=== PATIENT | male | born 1990 | race African-American/Black ===

== ENCOUNTER 2016-11-29 09:03 | Emergency (ER) | payer OTHER ==
[~2016-11-29] VITALS: Ht 167.6 cm; Wt 65.8 kg
[2016-11-29 09:18] VITALS: BP 128/77
[2016-11-29] MEDS ORDERED: Oxycodone/Acetaminophen 5-325 ORAL ONE (09:30)
--- NOTE | 2016-11-29 09:45 | Emergency Room Report ---
History of Present Illness General Chief Complaint: Upper Extremity Injury Source: Patient Present Illness HPI 26YOM [employer] patient with left hand pain, heard pop while crimping on small hold while indoor rock climbing Pain is to index metacarpal Occurred yesterday afternoon Been icing it Step mom physician placed splint with hand wrap Pain with flexing/extending index finger, making a fist. Allergies: Coded Allergies: No Known Allergies (Unverified , 11/29/16) Patient History Past Medical History: none Past Surgical History: none Pertinent Family History: none Social History: Denies: alcohol use, drug use, smoking Immunizations: UTD Reviewed Nursing Documentation: PMH: Agreed, PSxH: Agreed Nursing Documentation-PMH Past Medical History: No History, Except For Review of Systems All Other Systems: negative except mentioned in HPI Physical Exam Vital Signs Date Time Temp Pulse Resp B/P Pulse Ox O2 Delivery O2 Flow Rate FiO2 11/29/16 09:08 98.2 95 18 131/79 98 Room Air Sp02 EP Interpretation: reviewed, normal General Appearance: normal inspection, well appearing, no apparent distress, alert Head: normocephalic, atraumatic ENT: normal ENT inspection, hearing grossly normal, normal voice Neck: normal inspection, full range of motion, supple, no bony tend Respiratory: normal inspection, lungs clear, normal breath sounds, no respiratory distress, no retraction, no wheezing Cardiovascular #1: regular rate, rhythm, no edema Gastrointestinal: normal inspection, normal bowel sounds, non tender, soft, no guarding, no hernia Genitourinary: no CVA tenderness Musculoskeletal: normal inspection, back normal, normal range of motion, Axel' s Sign negative, other - Left hand: Significant ttp to left index metacarpal. Pain with extension/flexion index finger. 2++ distal radius. Full ROM at wrist. Neurologic: normal inspection, alert, oriented x3, responsive, [employer] III-XII nml as tested, motor strength/tone normal, speech normal Psychiatric: normal inspection, judgement/insight normal, mood/affect normal Skin: normal inspection, normal color, no rash Procedures Joint Reduction Joint Reduction : Consent: Emergent Joint Reduction Site: other - left hand Procedural Sedation: No Reduction Attempts: One Pre-Procedure NV Exam: Yes Post-Procedure NV Exam: Yes Post Joint Reduction Film: joint not reduced Patient Tolerated: Well Complications: None Progress Hematoma block to midshaft index metacarpal with 5cc lidocaine 1% Pulled traction to separate shaft fracture points and try to re-align Medical Decision Making Diagnostic Impression: Primary Impression: Left hand pain Additional Impression: Fracture, metacarpal shaft ER Course Left hand pain - VSS. Afebrile. - Analgesia provided - Xray: index metacarpal fx - Attempted reduction with hematoma block but only minimally successful - Splint placed - Will need surgery - Advised ICE, REST. Rx [place] Patient called PMD - going to office from here for Ortho/hand referral Understands urgency of 2-3 day followup Last Vital Signs Date Time Temp Pulse Resp B/P Pulse Ox O2 Delivery O2 Flow Rate FiO2 11/29/16 09:18 98.1 92 17 128/77 99 Room Air Status: unchanged Disposition: HOME, SELF-CARE Scripts Oxycodone/Acetaminophen 5-325* (PERCOCET 5-325 MG TABLET*) 1 Each Tablet 1 TAB ORAL Q8H Y for For Pain for 7 Days, #20 TAB Prov: NESS SHAY M.D. 11/29/16 Referrals: [facility],REFERRING (PCP) NESS SHAY M.D. Nov 29, 2016 09:45
[2016-11-29] MEDS ORDERED: Lidocaine 1% Plain 30 ml INJ ONE (11:15)
[2016-11-29] MEDS ORDERED: PERCOCET 5-3251 EACH ORAL (11:24)
--- NOTE | 2016-11-29 11:30 | Diagnostic Imaging Report ---
Indication: pain Findings: 3 views of the left hand were obtained. There is an acute fracture involving the midshaft of the second metacarpal with minimal angulation. A vertical component of the fracture extends into the second metacarpal trapezoid joint. Soft tissue swelling noted. Slightly expansile and sclerotic focus noted within the distal shaft of the radius. This is probably an ossified fibrous lesion versus an old fracture. Impression: Acute fracture of the second metacarpal.
[2016-11-29 12:07] VITALS: BP 123/79
[2016-11-29 12:08] VITALS: BP 123/79
--- NOTE | 2016-11-29 13:28 | Diagnostic Imaging Report ---
Indication: Post reduction Findings: 3 views of the left hand were obtained. A fracture of the second metacarpal again noted. Cast material now present. No significant change in alignment demonstrated. Impression: Second metacarpal fracture in plaster cast
== END 2016-11-29 12:09 | disposition home or self-care (01) ==
LOC: EMR 09:29
DX: S62.321A Displaced fracture of shaft of second metacarpal bone, left hand, initial encounter for closed fracture (principal); X58.XXXA Exposure to other specified factors, initial encounter; Y93.31 Activity, mountain climbing, rock climbing and wall climbing; Y92.39 Other specified sports and athletic area as the place of occurrence of the external cause
CPT/HCPCS: 26725; 73130; 99284; J2001; Z7502